=== PATIENT | male | born 1955 | race Caucasian/White ===

== ENCOUNTER 2017-11-26 15:17 | Outpatient (CLI) | payer OTHER, SELFPAY ==
[2017-11-26 16:33] LABS: Anion Gap 6.7 mmol/L (3-11); BUN 10 mg/dL (7-18); CO2 32.3 mmol/L (21.0-32.0); Calcium 9.4 mg/dL (8.5-10.1); Chloride 102 mmol/L (98-107); Glucose 86 mg/dL (70-100); Potassium 3.8 mmol/L (3.5-5.1); Sodium 141 mmol/L (136-145)
== END 2017-11-26 15:37 ==
PROVIDERS: PCP Family Medicine; Visit Provider Family Medicine
DX: Z00.00 Encounter for general adult medical examination without abnormal findings (principal); I10 Essential (primary) hypertension
CPT/HCPCS: 36415; 80048

== ENCOUNTER 2018-08-11 03:01 | Outpatient (CLI) | payer OTHER, SELFPAY ==
[2018-08-11 12:11] LABS: Anion Gap 8.7 mmol/L (3-11); BUN 13 mg/dL (7-18); CO2 30.3 mmol/L (21.0-32.0); CREATININE 1.13 mg/dL (0.70-1.30); Calcium 9.2 mg/dL (8.5-10.1); Chloride 102 mmol/L (98-107); Glucose 93 mg/dL (70-100); Potassium 3.8 mmol/L (3.5-5.1); Sodium 141 mmol/L (136-145)
== END 2018-08-11 03:21 ==
PROVIDERS: PCP Family Medicine; Visit Provider Family Medicine
DX: I10 Essential (primary) hypertension (principal)
CPT/HCPCS: 36415; 80048

== ENCOUNTER 2019-03-26 06:27 | Emergency (ER) | payer OTHER, SELFPAY ==
[2019-03-26 06:31] VITALS: BP 159/81; PULSE 62; RESP 18; TEMP 36.7
[2019-03-26] MEDS: Fluorescein STRIPS 100/BOX 1 MG ×2 (06:37→06:54)
[2019-03-26] MEDS: Tetracaine 0.5% 4 ML BTL (06:37)
--- NOTE | 2019-03-26 06:58 | W.ED.GENAD ---
Discharge Plan Disposition Patient Disposition: HOME Condition: Good Discharge Details Chief Complaint: EyeProblem Clinical Impression: Acute foreign body of right eye, Corneal rust ring Primary Care Provider: Matt Arevalo ED Provider: Tyler Lynne Home Meds and New Rx's Prescriptions: No Action hydrochlorothiazide 25 mg tablet 25 mg PO DAILY Qty: 90 RF: 4 Centrum Silver Men 1 EACH tablet 1 ea PO DAILY RF: 0 Discharge Instructions Instructions: Eye Foreign Body (ED) Additional Instructions: You have a foreign body in your right eye. It was removed, and then there was a notable rust ring which was removed. Please apply the antibiotic ointment to your eye 3-4 times per day. Please follow-up closely with Dr. Cole. If you notice any change in your vision, fever, chills, cloudiness in your eye, please return immediately for reassessment. As always it is a pleasure participating in your care today. Referrals: [facility] [place] [Outside] Medical Decision Making This is a pleasant 64-year-old male whose tetanus was updated in 2011 who does not wear contact lenses who presents with foreign body sensation in his right eye. 2-1/2 days ago he was working with his 4 burger putting a new set of tracks on a piece of metal he thinks or rust fell off of the tracks and landed in his right eye. Exam demonstrates at about the 7 o'clock position looking at the pupil a small amount of foreign body which appears to be a fragment of rust, with an associated surrounding rust ring. Using a tuberculosis needle the metal foreign body was removed, subsequent rust ring was then also removed with optical bur. Patient tolerated all this very well. Repeat slit-lamp exam and repeat fluorescein staining continues to demonstrate negative Jamar sign, as well as removal of foreign body and rust ring. Patient tolerated procedure well. Will give erythromycin ointment, and recommend close follow-up with Dr. Cole. We will place a referral for this. I have extensively reviewed the treatment plan and discharge instructions with the patient. I have addressed all patient concerns at this time. The patient was made aware of what symptoms to monitor for that would warrant a return to the emergency department. Discussed the plan with the patient, they demonstrate verbal understanding and agreement with our assessment and plan at this time. HPI General Date/Time Provider Initiated Documentation: 03/26/19 06:29. HPI Narrative: This is a 64-year-old male whose tetanus was updated in 2011 no other significant past medical history aside for hypertension who presents today for evaluation of pain in his right eye. Patient states that 2-1/2 days ago he was working with his 4 burger when he was putting a set of tracks on and a piece of metal got in his right eye. He does not wear contact lenses. He tried washing it out but to no avail. He has had mild continued pain since then and feels like there is been something stuck in it. He denies any other significant vision changes. No other modifying factors. No other complaints at this time. Related Data Home Medications Medication Instructions Recorded Confirmed Centrum Silver Men 1 ea PO DAILY 07/20/16 08/08/18 hydrochlorothiazide 25 mg tablet 25 mg PO DAILY #90 tab 08/08/18 08/08/18 Previous Rx's Medication Instructions Recorded hydrochlorothiazide 25 mg tablet 25 mg PO DAILY #90 tab 08/08/18 Allergies Allergy/AdvReac Type Severity Reaction Status Date / Time lisinopril AdvReac COUGH Unverified 08/08/18 16:07 General Stated Complaint: EyeProblem BENY: 4 Review of Systems All systems reviewed & are unremarkable except as noted in HPI and below PFSH Family History Mother Diabetes Essential hypertension Stroke Father Essential hypertension Sister Essential hypertension Brother No problems noted. Sister No problems noted. Sister No problems noted. Sister No problems noted. Son No problems noted. Sister No problems noted. Social History Smoking/Tobacco Use Status: Current every day Tobacco Type: smokeless tobacco Smokeless tobacco user: chewing tobacco Quit status: not considering quitting Alcohol Intake: former Drug use: Never Do you feel safe in your relationship?: Yes Exam Narrative Exam Narrative: 1.Const: Well-nourished, Well-developed, appearing stated age 2.Eyes: PERRL. Right eye: EOMI, Peripheral vision intact. No nystagmus.No clinical signs of septal/orbital cellulitis, no redness around the eye, no proptosis. No hyphema, no signs of trauma around the eye, no periorbital emphysema. No sluggishness of the pupil. No ophthalmoplegia. No afferent pupillary defect. Fluorescein exam is positive for corneal abrasion and uptake with evidence of a metal foreign body and surrounding rust ring at the 7 o'clock position when looking at the pupil, negative Jamar sign. Eversion of both upper and lower lids demonstrates no evidence of retained foreign body. 3.ENT: Atraumatic external nose and ears. Moist MM. Neck: Symmetric, trachea midline, No thyromegaly. 4.CVS: +S1/S2, No murmurs or gallops. Peripheral pulses 2+ and equal in all extremities. Brisk capillary refill in all extremities. 5.RESP: Unlabored respiratory effort. Clear to auscultation bilaterally. No wheezes rales or rhonchi 6.GI: Soft, Nontender/Nondistended, No hepatosplenomegaly. No guarding or rebound. 7.MSK: Normocephalic/Atraumatic, Extremities w/o deformity or ttp No cyanosis or clubbing, Normal movement of all extremities 8.Skin: Warm, Dry. No rashes or lesions. 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 Sensation grossly intact, no focal neurologic deficits. 10.Psych: (AAO) x3. Appropriate mood and affect Course Vital Signs Vital signs: Vital Signs Temperature 36.7 C 03/26/19 06:31 Pulse 62 03/26/19 06:31 Respiratory Rate 18 03/26/19 06:31 Blood Pressure 159/81 H 03/26/19 06:31 Temperature 36.7 C 03/26/19 06:31 Temperature Source Skin 03/26/19 06:31 Pulse 62 03/26/19 06:31 Respiratory Rate 18 03/26/19 06:31 Respiratory Effort 03/26/19 06:31 Blood Pressure 159/81 H 03/26/19 06:31 Procedures FB Removal Eye Time Out performed: Yes Location: eye (R) Topical anesthetic used: tetracaine Foreign body: metal Evidence of corneal penetration: No Technique: irrigation, needle and electric norma Procedure performed under: direct visualization with magnification and slit-lamp Post-procedure medication: ophthalmic antibiotic and topical anesthetic Patient tolerated procedure: well
[2019-03-26 07:04] VITALS: BP 159/81; PULSE 74; RESP 18; O2SAT 97
--- NOTE | 2019-03-26 07:37 | NUR.NOTE ---
Nursing Note: Faxed to [facility] a referral for follow up. Mel Morin.
== END 2019-03-26 07:04 | disposition home or self-care (01) ==
PROVIDERS: Emergency Provider Student in an Organized Health Care Education/Training Program; PCP Family Medicine
DX: T15.01XA Foreign body in cornea, right eye, initial encounter (principal)
CPT/HCPCS: 65222

== ENCOUNTER 2020-06-29 03:08 | Outpatient (CLI) | payer OTHER, SELFPAY ==
[2020-06-29 11:54] LABS: Anion Gap 7.9 mmol/L (3-11); BUN 14 mg/dL (7-18); CO2 32.1 mmol/L (21.0-32.0); CREATININE 1.2 mg/dL (0.70-1.30); Calcium 8.8 mg/dL (8.5-10.1); Calculated LDL 105 mg/dL (<100); Chloride 102 mmol/L (98-107); Cholesterol 164 mg/dL (<200); Glucose 94 mg/dL (74-106); HDL Cholesterol 39 mg/dL (40-60); Potassium 3.6 mmol/L (3.5-5.1); Sodium 142 mmol/L (136-145); Triglyceride 104 mg/dL (<150)
== END 2020-06-29 03:09 | disposition home or self-care (01) ==
LOC: LOS 03:08
PROVIDERS: PCP Family Medicine; Visit Provider Family Medicine
DX: I10 Essential (primary) hypertension (principal)
CPT/HCPCS: 36415; 80048; 80061

== ENCOUNTER 2020-08-15 20:09 | Outpatient (REF) | payer OTHER, SELFPAY ==
[2020-08-15 18:17] LABS: Hemoglobin A1C 5.5 % (<5.7)
[2020-08-16 17:22] LABS: PSA, Screening 1.5 ng/mL (0.0-4.5)
== END 2020-08-15 20:10 | disposition home or self-care (01) ==
LOC: NCHCN 20:09
PROVIDERS: PCP Nurse Practitioner Family; Visit Provider Nurse Practitioner Family
DX: Z00.00 Encounter for general adult medical examination without abnormal findings (principal); Z13.1 Encounter for screening for diabetes mellitus; Z12.5 Encounter for screening for malignant neoplasm of prostate
CPT/HCPCS: 84153; 83036

== ENCOUNTER 2021-12-04 03:53 | Outpatient (CLI) | payer MEDICARE, SELFPAY ==
[2021-12-04 12:20] LABS: Anion Gap 6.3 mmol/L (3-11); BUN 25 mg/dL (7-18); CO2 29.7 mmol/L (21.0-32.0); CREATININE 1.2 mg/dL (0.70-1.30); Calcium 8.6 mg/dL (8.5-10.1); Chloride 104 mmol/L (98-107); Estimated GFR 67.11 (mL/min/1.73m2); Glucose 96 mg/dL (74-106); Potassium 3.9 mmol/L (3.5-5.1); Sodium 140 mmol/L (136-145)
== END 2021-12-04 03:54 | disposition home or self-care (01) ==
LOC: LOS 03:53
PROVIDERS: PCP Nurse Practitioner Family; Visit Provider Nurse Practitioner Family
DX: I10 Essential (primary) hypertension (principal)
CPT/HCPCS: 36415; 80048

== ENCOUNTER 2022-08-27 01:27 | Outpatient (CLI) | payer MEDICARE, SELFPAY ==
--- NOTE | 2022-08-27 07:15 | DI.RAD_ITS ---
Exam(s) XR KNEE RT 3V AP,LAT,ELIECER EXAM: XR KNEE RT 3V AP,LAT,ELIECER CLINICAL HISTORY: bilateral knee pain,?arthritis?,m25.562. TECHNIQUE: 2D digital imaging was performed of the right knee. Three views obtained. AP, lateral an d PA tunnel views were obtained. COMPARISON: None. FINDINGS: BONES: No acute fracture is present. No bony destructive lesion is seen. There is a small subchondral cyst in the medial tibial plateau. JOINTS: The knee is normally aligned. No joint effusion is seen. There is spurring seen at the qa internship ior patella and the medial femoral tibial joint. There is mild narrowing and chondrocalcinosis of th e femoral tibial joint spaces. SOFT TISSUE: Normal. IMPRESSION: [id number] degenerative changes of the right knee. DATA REPOSITORY: RADIATION DOSE DELIVERED:
--- NOTE | 2022-08-27 07:15 | DI.RAD_ITS ---
Exam(s) XR KNEE LT 3V AP,LAT,ELIECER EXAM: XR KNEE LT 3V AP,LAT,ELIECER CLINICAL HISTORY: bilateral knee pain,?arthritis,m25.561. TECHNIQUE: 2D digital imaging was performed of the left knee. Three images were obtained. AP, late ral and PA tunnel views were obtained. COMPARISON: No exams were available for comparison FINDINGS: BONES: No acute fracture is present. No bony destructive lesion is seen. JOINTS: The knee is normally aligned. No joint effusion is seen. There is mild spurring of the checker stocker ior patella. Chondrocalcinosis is seen in the femoral tibial joint which can be seen with CPPD arthr opathy SOFT TISSUE: Normal. IMPRESSION: Mild degenerative changes of the knee. DATA REPOSITORY: RADIATION DOSE DELIVERED:
== END 2022-08-27 01:47 ==
LOC: DI 01:27
PROVIDERS: PCP Nurse Practitioner Family; Visit Provider Nurse Practitioner Family
DX: M17.0 Bilateral primary osteoarthritis of knee
CPT/HCPCS: 73562

== ENCOUNTER 2022-08-28 03:19 | Outpatient (CLI) | payer MEDICARE, SELFPAY ==
[2022-08-28 13:14] LABS: BUN 17 mg/dL (7-18); CREATININE 1.2 mg/dL (0.70-1.30); Calcium 8.8 mg/dL (8.5-10.1); Calculated LDL 88 mg/dL (<100); Chloride 104 mmol/L (98-107); Cholesterol 146 mg/dL (<200); Glucose 103 mg/dL (74-106); HDL Cholesterol 47 mg/dL (40-60); Potassium 3.7 mmol/L (3.5-5.1); Sodium 142 mmol/L (136-145); Triglyceride 59 mg/dL (<150)
[2022-08-28 23:15] LABS: PSA, Screening 1.4 ng/mL (<=4.5)
== END 2022-08-28 03:20 | disposition home or self-care (01) ==
LOC: LOS 03:19
PROVIDERS: PCP Nurse Practitioner Family; Visit Provider Nurse Practitioner Family
DX: I10 Essential (primary) hypertension (principal); N40.0 Benign prostatic hyperplasia without lower urinary tract symptoms; Z12.5 Encounter for screening for malignant neoplasm of prostate
CPT/HCPCS: 36415; 80048; 80061; 84153

== ENCOUNTER → 2022-10-15 12:50 | Outpatient (BNVA) | payer MEDICARE, SELFPAY | PROVIDERS: PCP Nurse Practitioner Family; Referring Provider Nurse Practitioner Family | DX: M17.11 Unilateral primary osteoarthritis, right knee (principal); M17.12 Unilateral primary osteoarthritis, left knee | CPT/HCPCS: 20610; 99202; J1030 ==

== ENCOUNTER 2023-10-29 02:58 | Outpatient (CLI) | payer MEDICARE, SELFPAY ==
[2023-10-29 12:25] LABS: Abs Immature Grans 0.01 10^3/uL (0.0-0.06); Absolute Basophil Count 0.05 10^3/uL (0.0-0.2); Absolute Eosinophil Count 0.28 10^3/uL (0.0-0.7); Absolute Lymphocyte Count 1.78 10^3/uL (1.2-3.4); Absolute Neutrophil Count 3.22 10^3/uL (1.2-6.7); Basophils % 0.8 %; Eosinophils % 4.7 %; HCT 47.6 % (40.0-50.0); HGB 15.4 g/dL (13.5-17.5); Immature Grans % 0.2 %; MCH 30.1 pg (27.0-33.0); MCHC 32.4 % (32.0-36.0); MCV 93 fL (80-95); MPV 11.7 fL (8.0-11.0); Monocytes % 10.1 %; Neutrophils % 54.2 %; Platelet Count 207 10^3/uL (130-400); RBC 5.11 10^6/uL (4.36-5.78); RDW 13.5 % (11.8-14.1); RDW-SD 46.5 fL; WBC 5.94 10^3/uL (4.4-10.8)
[2023-10-29 13:13] LABS: ALT 32 U/L (16-63); AST 18 U/L (15-37); Albumin 3.7 g/dL (3.4-5.0); Alkaline Phosphatase 55 U/L (46-116); Anion Gap 7.1 mmol/L (3-11); BUN 17 mg/dL (7-18); Bilirubin, Total 0.34 mg/dL (0.2-1.0); CO2 30.9 mmol/L (21.0-32.0); CREATININE 1.1 mg/dL (0.70-1.30); Calcium 9.1 mg/dL (8.5-10.1); Calculated LDL 83 mg/dL (<100); Chloride 105 mmol/L (98-107); Cholesterol 147 mg/dL (<200); Estimated GFR 73.58 (mL/min/1.73m2); Glucose 101 mg/dL (74-106); HDL Cholesterol 48 mg/dL (40-60); Sodium 143 mmol/L (136-145); Total Protein 7.1 g/dL (6.4-8.2); Triglyceride 80 mg/dL (<150)
[2023-10-29 18:10] LABS: PSA, Screening 1.6 ng/mL (<=4.5)
[2023-10-29 18:47] LABS: Hepatitis C Ab w Rflx HCV PCR Negative (Negative)
[2023-10-29 18:49] LABS: HIV-1/2 Ag & Ab Screen Negative (Negative)
[2023-10-29 18:52] LABS: HBs Antibody, Quant <3.1 mIU/mL (See Note); Hep B Surface Ab Negative (See Note); Hepatitis B Core Antibody Negative (Negative); Hepatitis B Surface Antigen Negative (Negative)
[2023-10-29 19:12] LABS: Hemoglobin A1C 5.4 % (<5.7)
== END 2023-10-29 02:59 | disposition home or self-care (01) ==
LOC: LOS 02:58
PROVIDERS: PCP Nurse Practitioner Family; Visit Provider Nurse Practitioner Family
DX: I10 Essential (primary) hypertension (principal); E78.5 Hyperlipidemia, unspecified; H53.2 Diplopia; Z12.5 Encounter for screening for malignant neoplasm of prostate; R73.01 Impaired fasting glucose; Z11.59 Encounter for screening for other viral diseases; Z11.4 Encounter for screening for human immunodeficiency virus [HIV]
CPT/HCPCS: 36415; 80053; 80061; 84153; 86704; 86706; 86803; 87340; 87389; 83036; 83735; 84443; 85025

== ENCOUNTER → 2023-12-26 14:28 | Outpatient (BNVA) | payer MEDICARE, SELFPAY | PROVIDERS: PCP Nurse Practitioner Family; Referring Provider Nurse Practitioner Family; Visit Provider Physical Therapy Assistant | DX: Z12.11 Encounter for screening for malignant neoplasm of colon (principal) ==

== ENCOUNTER 2024-01-13 06:08 | Day surgery (SDC) | payer MEDICARE, SELFPAY ==
--- NOTE | 2024-01-12 10:32 | W.PM.DSUDISC ---
Date of service: 01/13/24 Time of Service: 08:06 Discharge Plan Disposition Patient Disposition: Home Condition: Good Discharge Details Reason For Visit: screening colonoscopy Attending Provider: Camacho Adams Primary Care Provider: Yaneth Duarte Home Meds and New Rx's Prescriptions: Continued hydrochlorothiazide 25 mg tablet 25 mg PO DAILY Qty: 90 3RF tamsulosin [Flomax] 0.4 mg capsule 0.4 mg PO DAILY Qty: 90 3RF Centrum Silver Men 1 EACH tablet 1 ea PO DAILY Discontinued bisacodyl [Dulcolax (bisacodyl)] 5 mg tablet,delayed release (DR/EC) 5 mg PO ONCE Qty: 4 0RF Rx Instructions: Take per colonoscopy instructions provided by ordering providers office polyethylene glycol 3350 17 gram/dose powder 17 g PO ONCE Qty: 238 0RF Rx Instructions: Take per colonoscopy instructions provided by ordering providers office Discharge Instructions Instructions: Diverticulosis Additional Instructions: Remington, was very nice meeting you today, and I hope you are comfortable during the colonoscopy. Everything went very smoothly. Your prep was excellent and I could see everything fine. There were no tumors or polyps on your colonoscopy. Incidentally, you do have just a trace of diverticulosis. Diverticula are little weak spots or pockets in the wall of the colon. They typically accumulate as we get older. Maintaining a diet that is rich in fiber, staying well-hydrated, and avoiding constipation are the mainstays of treatment. I have attached a little bit of information here about diverticulosis in general. With otherwise negative colonoscopy today, I would recommend another screening colonoscopy in 10 years. If you have any questions or anything in the meantime, please do not hesitate to ask. 1. If tolerated, consume a soft, low fiber diet for 1-2 days. 2[address] Do not drive, drink alcohol, operate machinery, make critical decisions, or do activities that require coordination or balance for 24 hours. 3. Because air was put into your colon during the procedure, expelling air from your rectum (passing gas or farting) is normal. 4. You may not have a bowel movement for 1-3 days because of the colonoscopy prep. This is normal. 5. Go directly to the emergency room if you notice any of the following: Develop chills (warm to touch), or if you have a thermometer and your temperature is above 101 Difficulty breathing or difficultly swallowing Persistent vomiting Severe abdominal pain, other than gas cramps Severe chest pain Black, tarry stools Any bleeding ? exceeding one tablespoon 6. Call your physician if the site where your intravenous was started becomes red, swollen, painful, and warm to touch. 7. Your physician has reviewed your pre-procedure medications. Please continue to take those medications as previously ordered. You will be given specific information/education regarding any changes to your medications before leaving. Activity:: Activity as Tolerated Diet:: As Tolerated Discharge Orders Discharge Orders: Discharge Order (Routine); Ordered 01/12/24 Ordered By: Camacho Adams
--- NOTE | 2024-01-12 10:33 | COLE_ITS ---
Date of service: 01/13/24 Time of Service: 08:09 Colonoscopy Report Date of procedure: 01/13/24 Pre-op diagnosis general: screening colonoscopy Post-op diagnosis procedure note: other (Diverticulosis) Procedure: colonoscopy Surgeon: Camacho Adams Anesthesia Type: General:No Airway Estimated blood loss (mL): 0 Pathology: none sent Complications: None Disposition: same day Indications: Remington is a 68 year old man who needs his next screening colonoscopy Prep: Miralax/Dulcolax Procedure Start Time: 07:53 Procedure End Time: 08:04 Retraction Time: 7 Findings: Occasional sigmoid diverticula Procedure Description: After the induction of anesthesia, and with the patient in left lateral decubitus position, I began by performing an external anorectal exam.? Perineum and skin were normal, as was the anal verge.? There was no evidence of external hemorrhoids.? Next, I performed a digital rectal exam.? I did not appreciate any abnormal findings.? Next, I advanced a colonoscope into the rectal vault.? I performed retroflexion.? There were mild internal hemorrhoids.? Using insufflation, I then advanced the colonoscope beyond the rectal folds and into the sigmoid colon before advancing towards the cecum.? There were a few sc attered sigmoid diverticula.? The scope was noted to be in the cecum by identification of the ileocecal valve and appendiceal orifice.? I then began withdrawing the colonoscope using repeated irrigation as necessary for full evaluation of the colonic mucosa. ?Once the scope was withdrawn to the level of the rectum, great care was taken to examine portions of the rectal folds.? I saw no signs of tumors or polyps. Finally, the scope was withdrawn and the patient was brought to the same-day surgery recovery unit as the anesthetic wore off. ?The findings and instructions were shared with the patient prior to discharge. [employer] Bowel Prep [employer] Bowel Prep Right Colon: 3 Left Colon: 3 Transverse Colon: 3 Total Score: 9
[2024-01-13 06:38] VITALS: BP 118/82; PULSE 69; RESP 18; TEMP 36.6; O2SAT 98
[2024-01-13] MEDS: Lactated Ringers 1,000 ML 80 ML IV (06:43)
--- NOTE | 2024-01-13 06:58 | W.ANESPRE ---
General Info Date of Service Date Performed: 01/13/24 Height: 5 ft 8 in Weight: 85.5 kg Body Mass Index (BMI): 28.6 Surgical Procedure: Operation Date: 01/13/24 07:35 Proposed Procedure Side Surgeon teresa Adams MD Meds Allergies and Home Medications Allergies Allergy/AdvReac Type Severity Reaction Status Date / Time lisinopril AdvReac COUGH Unverified 01/13/24 06:36 Home Medication ?Medication ?Instructions ?Recorded [id number] 300 mcg-K 60 1 ea PO DAILY 07/20/16 mcg-lycop 600 mcg-lutein 300 mcg tablet (Centrum Silver Men) hydrochlorothiazide 25 mg tablet 25 mg PO DAILY #90 tabs 10/25/23 tamsulosin 0.4 mg capsule (Flomax) 0.4 mg PO DAILY #90 caps 10/25/23 Current Visit Medications: Current Medications Generic Name Dose Route Start Last Admin Trade Name Freq PRN Reason Stop Dose Admin Ringer's Solution 1,000 mls @ 80 mls/hr 01/13/24 06:00 01/13/24 06:43 IV 01/13/24 23:59 80 mls/hr INFUSION MARTIN Administration IV Miscellaneous Supplies 1 each 01/13/24 06:00 Iv Access IV 01/13/24 23:59 DIRECTED MARTIN Ondansetron HCl 4 mg 01/12/24 10:34 Ondansetron 4 Mg/2 Ml Vial IVP 02/11/24 10:33 Q4H PRN PRN Nausea / Vomiting Sodium Chloride 0 ml 01/13/24 06:00 Normal Saline Flush 10 Ml Syr IV 01/13/24 23:59 PRN PRN Sodium Chloride 0 ml 01/13/24 06:00 Normal Saline 10 Ml Vial IJ 01/13/24 23:59 DIRECTED PRN Sterile Water 0 ml 01/13/24 06:00 Water,Injection,Sterile 10 Ml Vial IJ 01/13/24 23:59 DIRECTED PRN PFSH Active Problems Active Problems: Problem Status Onset Code Primary osteoarthritis of both knees Chronic M17.0 BPH (benign prostatic hyperplasia) Chronic N40.0 Essential hypertension Chronic I10 Hyperlipidemia Chronic E78.5 Smokeless tobacco use Chronic Z72.0 Surgical History Surgical History S/P left rotator cuff repair Hx of hand surgery Left hand Tobacco Smoking/Tobacco Use Status: Current every day Tobacco Type: smokeless tobacco Smokeless tobacco user: chewing tobacco Passive smoking exposure: Yes Second hand exposure: Yes Counseling given: provider counseling Alcohol Alcohol Intake: former Year quit: 2012 Substance Use Substance use: Never Substance use type: does not use Vital Signs and Lab Results Vital Signs Most Recent Vital Signs in EMR: Most Recent Vital Signs Temp Pulse Resp BP Pulse Ox 36.6 C 69 18 118/82 98 01/13/24 06:38 01/13/24 06:38 01/13/24 06:38 01/13/24 06:38 01/13/24 06:38 Lab Results Blood Type / Crossmatch: No Data to Display Complete Blood Count: No Data to Display Complete Metabolic Panel: No Data to Display Liver Function Panel: No Data to Display Coagulation Panel: No Data to Display Cardiac Panel: No Data to Display Arterial Blood Gas: No Data to Display Venous Blood Gas: No Data to Display Pancreas Panel: No Data to Display Thyroid Panel: No Data to Display Infectious Disease: No Data to Display Blood Cultures: No Data to Display Toxicology Panel: No Data to Display Anesthesia Assessment and Plan Anesthesia History Personal History: No History of Anesthesia Complications Family History: No Family History of Anesthesia Complications Exercise Tolerance Exercise Tolerance: Metabolic Equivalents>4 Pertinent Negatives Pertinent Negatives: No Symptoms of GERD, No Major Cardiovascular Symptoms or Complaints, No Major Pulmonary Symptoms or Complaints and No History of CVA/TIA Cardiac & Pulmonary Exam Cardiac Exam: Normal S1/S2 Heart Sounds Pulmonary Exam: Clear Bilateral Breath Sounds Implantable Cardiac Device Does patient have a Pacemaker or an ICD?: No Airway Exam Known Difficult Airway: No Mallampati Class: 2 Mouth Opening: Normal (> 3cm) Thyromental Distance: Greater than 3 cm Neck Range of Motion: Full ROM Neck Circumference: Normal Teeth Condition: Normal Dentition and Generalized Poor Dentition ASA Classification ASA Score: ASA 2 Emergency Case?: No NPO Status NPO Status: NPO Clears >2 hours, Solids >8 hours Anesthesia Plan Resuscitation Status: Full Code Anesthesia Technique: General Anesthesia Airway Planned: Natural Airway Monitors Used: Standard Monitors
[2024-01-13 07:28] VITALS: BMI 28.6
[2024-01-13 08:11] VITALS: BP 107/70; PULSE 63; RESP 18; TEMP 36.3; O2SAT 96
--- NOTE | 2024-01-13 08:20 | W.ANESPOSTOP ---
Postoperative Evaluation Date, Time and Location Date Performed: 01/13/24 Time Performed: : Patient Location: Day Surgery Unit Vital Signs Most Recent Imported Vital Signs: Most Recent Vital Signs Temp Pulse Resp BP Pulse Ox 36.3 C L 63 18 107/70 96 01/13/24 08:11 01/13/24 08:11 01/13/24 08:11 01/13/24 08:11 01/13/24 08:11 Pain Score Most Recent Pain Score: Most Recent Pain Score Pain Level 0 01/13/24 08:11 Assessment Mental Status: Awake (Alert & Oriented to Patient Baseline) Airway and Respiratory Function: Patent airway with normal (patient baseline) respiratory exam Cardiovascular Function: Hemodynamically Stable Hydration Status: Adequately Hydrated Nausea & Vomiting: No Nausea or Vomiting Pain: Pt. Denies Any Pain Peripheral Nerve Block: Patient did not receive a nerve block
[2024-01-13 08:39] VITALS: BP 124/82; PULSE 55; RESP 16; TEMP 36.3; O2SAT 97
== END 2024-01-13 08:56 | disposition home or self-care (01) ==
LOC: SUR 06:08
PROVIDERS: PCP Nurse Practitioner Family; Visit Provider Surgery
PROC: 0DJD8ZZ Inspection of Lower Intestinal Tract, Via Natural or Artificial Opening Endoscopic (ICD-10-PCS; CPT 45378; principal; 2024-01-13 07:30)
DX: Z12.11 Encounter for screening for malignant neoplasm of colon (principal); I10 Essential (primary) hypertension; Z72.0 Tobacco use; K57.30 Diverticulosis of large intestine without perforation or abscess without bleeding
CPT/HCPCS: G0121; J2704

== ENCOUNTER 2024-02-04 02:46 | Outpatient (CLI) | payer MEDICARE, SELFPAY ==
--- NOTE | 2024-02-04 15:23 | DI.CT_ITS ---
Exam(s) CT HEAD WO EXAM: CT HEAD WO CLINICAL HISTORY: headache, diplopia,H53.2.R51.9. TECHNIQUE: Imaging Protocol: Axial computed tomography images with coronal and sagittal reformatted images were created and reviewed COMPARISON: No exams were available for comparison FINDINGS: Ventricles and Extra axial spaces: Normal in size and morphology for the patient's age. Hemorrhage: None. Cerebral parenchyma: Normal. Midline shift: None. Brainstem/Cerebellum: Normal. Calvarium: Normal. Visualized Paranasal sinuses/Mastoids: There is opacification of several ethmoid air cells bilaterall y. The remaining visualized paranasal sinuses are clear as are the mastoid air cells. Soft Tissues: Unremarkable. Pituitary gland: Remarkable. The optic chiasm and the supra sellar region is unremarkable. IMPRESSION: 1. No acute intracranial process. 2. Unremarkable appearance of the pituitary gland and optic chiasm on this noncontrast CT examination . 3. Ethmoid sinus disease. RADIATION DOSE DELIVERED: 841.86mGy.cm Total DLP DATA REPOSITORY: All CT scans at this facility are submitted to the National Radiology Data Registry (NRDR) Dose Index Registry (DIR) with the [employer] (A[employer]). RADIATION OPTIMIZATION: All CT scans at this facility use at least one of these dose optimization te chniques: automated exposure control; mA and/or kV adjustment per patient size (includes targeted exa ms where dose is matched to clinical indication); or iterative reconstruction.
== END 2024-02-04 03:06 ==
LOC: DI 02:46
PROVIDERS: PCP Nurse Practitioner Family; Visit Provider Nurse Practitioner Family
DX: J32.2 Chronic ethmoidal sinusitis (principal)
CPT/HCPCS: 70450

== ENCOUNTER 2024-11-09 04:12 | Outpatient (CLI) | payer MEDICARE, SELFPAY ==
[2024-11-09 13:00] LABS: Anion Gap 8.0 mmol/L (3-11); BUN 13 mg/dL (7-18); CO2 28.0 mmol/L (21.0-32.0); Calcium 8.7 mg/dL (8.5-10.1); Chloride 105 mmol/L (98-107); Estimated GFR 81.98 (mL/min/1.73m2); Glucose 94 mg/dL (74-106); Potassium 4.3 mmol/L (3.5-5.1); Sodium 141 mmol/L (136-145)
== END 2024-11-09 04:13 | disposition home or self-care (01) ==
LOC: LOS 04:13
PROVIDERS: PCP Nurse Practitioner Family; Visit Provider Nurse Practitioner Family
DX: I10 Essential (primary) hypertension (principal)
CPT/HCPCS: 36415; 80048

== ENCOUNTER → 2024-12-03 15:05 | Outpatient (BNVA) | payer MEDICARE, SELFPAY | PROVIDERS: PCP Nurse Practitioner Family; Referring Provider Nurse Practitioner Family; Visit Provider Physician Assistant | DX: M17.0 Bilateral primary osteoarthritis of knee (principal) | CPT/HCPCS: 20610; J1010 ==